=== PATIENT | male | born 1970 | race American Indian/Alaskan Native ===

== ENCOUNTER 2019-01-14 20:33 | Emergency (ER) | payer SELFPAY ==
[~2019-01-14] VITALS: Ht 175.3 cm; Wt 129.3 kg
[2019-01-14] MEDS ORDERED: DIPHENHYDRAMINE HCL INJ 50 MG/ML VIAL IM ONE (21:45)
[2019-01-14] MEDS ORDERED: METOCLOPRAMIDE HCL 10 MG TAB PO ONE (21:45)
[2019-01-14] MEDS ORDERED: KETOROLAC TROMETHAMINE 60 MG/2 ML VIAL IM ONE (21:45)
--- NOTE | 2019-01-14 22:09 | Diagnostic Imaging Report ---
History: Headache Comparison studies: None Technique: Axial images were obtained from the skull base to the vertex. Coronal and sagittal reconstructions obtained from the axial data. Dose modulation, iterative reconstruction, and/or weight based adjustment of the mA/kV was utilized to reduce the radiation dose to as low as reasonably achievable. Findings: Scalp/skull: No abnormalities. No fractures, blastic or lytic lesions. Extra-axial spaces: No masses. No fluid collections. Brain sulci: Appropriate for age. Ventricles: Normal in size and configuration. No hydrocephalus. Parenchyma: No abnormal densities. No masses, hemorrhage, acute or chronic cortical vascular insults. Sellar/suprasellar region: No abnormalities Craniocervical junction: Patent foramen magnum. No Chiari one malformation. IMPRESSION: No abnormalities Signed by: Dr. Hemant Hewitt M.D. on 01/14/2019 10:05 PM
[2019-01-14] MEDS ORDERED: HYDROCHLOROTHIA25 MG PO (23:28)
[2019-01-15 00:25] VITALS: BP 122/86
== END 2019-01-14 23:40 | disposition home or self-care (01) ==
LOC: ER 20:33
DX: R42 Dizziness and giddiness (principal); R51 Headache; I10 Essential (primary) hypertension
CPT/HCPCS: 70450; 96372; 99284; J1200; J1885; J8597